=== PATIENT | male | born 1950 | race Caucasian/White ===

== ENCOUNTER → 2018-02-07 | Outpatient (CLI) | payer MEDICARE, OTHER ==
[~2018-02-07] VITALS: Ht 182.9 cm; Wt 124.3 kg
[~2018-02-07] MED LIST: ASPI-983 PO; BNZ40T PO; CATHETER FLUSH 10 ML SYR IV PRN; CLOP75TA28 PO; GLIP10TA13 PO; HYDR12.56 PO; METF10002 PO; OMEG1CAP58 PO; PANT40VI14 IV; PIOG30TA26 PO; PRAV40TA2 PO; RIVA20TA PO; WARF5TAB PO
[2018-02-07 07:31] LABS: BASOPHILS % (AUTO) 1 % (0-10); EOSINOPHILS # (AUTO) 0.2 10^3/uL (0.0-0.3); EOSINOPHILS % (AUTO) 2 % (0-10); HEMATOCRIT 40 % (40-54); HEMOGLOBIN 13.5 G/DL (13.3-17.7); LYMPHOCYTES # (AUTO) 2.3 X 10^3 (1.0-4.0); LYMPHOCYTES % (AUTO) 35 % (12-44); MEAN CORPUSCULAR HEMOGLOBIN 31 PG (25-34); MEAN CORPUSCULAR HGB CONC 34 G/DL (32-36); MEAN CORPUSCULAR VOLUME 92 FL (80-99); MEAN PLATELET VOLUME 10.6 FL (7.4-10.4); MONOCYTES # (AUTO) 0.9 X 10^3 (0.0-1.0); MONOCYTES % (AUTO) 14 % (0-12); NEUTROPHILS # (AUTO) 3.2 X 10^3 (1.8-7.8); NEUTROPHILS % (AUTO) 49 % (42-75); PLATELET COUNT 168 10^3/uL (130-400); RED BLOOD COUNT 4.35 10^6/uL (4.35-5.85); RED CELL DISTRIBUTION WIDTH 13.6 % (10.0-14.5); WHITE BLOOD COUNT 6.6 10^3/uL (4.3-11.0)
[2018-02-07 09:02] VITALS: BP 150/69
--- NOTE | 2018-02-07 14:14 | STRESS TEST ---
DATE OF SERVICE: 02/07/2018 EXERCISE MYOVIEW STRESS TEST REPORT Baseline heart rate is 58. Baseline blood pressure 128/69. Baseline EKG is sinus rhythm with no ischemic changes. In summary, the patient was injected with 10.31 mCi of technetium-99 Myoview and the resting images were obtained. Then, the patient started exercising with a baseline heart rate, blood pressure EKG mentioned above. The patient was able to exercise for a total of 4 minutes on standard Gómez protocol. With peak exercise level, EKG was showing [address] depression in lead II and aVF, [address] depression in lead III, [address] depression upsloping in V3, V4, V5 and V6. Blood pressure was 150/69. During recovery, heart rate and blood pressure returned to baseline. EKG returned to baseline. The resting and stress images were reviewed and compared in the short axis, horizontal long axis, and vertical long axis views. Review of the images showed diaphragmatic attenuation with typical male pattern. There is a mild decrease uptake at the inferior wall with mild reversibility. SSS is 3, SDS 1, TID value 0.93. On the gated images, the left ventricle appeared to be in normal size with normal contractility. Calculated ejection fraction 63%. CONCLUSION: 1. Fair exercise tolerance for the patient age, total of 4 minutes on standard Gómez protocol, total of 5.8 METS achieving 99% of maximum expected heart rate. 2. Mild hypertensive response to exercise, peak blood pressure was 180/81 during stress test. 3. Abnormal EKG response to exercise suggestive of ischemia. 4. SPECT images are nondiagnostic with diaphragmatic attenuation and mild decreased uptake in the inferior wall with mild reversibility. 5. Normal left ventricular size with normal contractility. Calculated ejection fraction 63%. Job ID: [id number] DocumentID: [id number] Dictated Date: 02/07/2018 11:30:16 Welding Equipment Sales Representative Date: 02/07/2018 14:13:17 Dictated By: KANDY YUAN MD
[2018-02-08 14:34] LABS: DRVV C RATIO 1.34 ratio (0.00-1.20)
== END ==
LOC: CARD 06:54
PROVIDERS: ATTEND Internal Medicine Cardiovascular Disease
DX: R07.89 Other chest pain (principal); I10 Essential (primary) hypertension; E11.9 Type 2 diabetes mellitus without complications; E78.5 Hyperlipidemia, unspecified; E78.2 Mixed hyperlipidemia
CPT/HCPCS: 36415; 78452; 81240; 83090; 84443; 85025; 85240; 85307; 85597; 85610; 85613; 85705; 85730; 86146; 86147; 93017

== ENCOUNTER 2018-02-16 06:57 | Day surgery (SDC) | payer MEDICARE, OTHER ==
[2018-02-16] VITALS (13 sets, daily range): BP systolic 116–155; BP diastolic 68–93
[~2018-02-16] VITALS: Ht 182.9 cm; Wt 124.3 kg
[2018-02-16] MEDS ORDERED: LIDOCAINE 1% INJ 20 ML 20 ML VIAL ONE (07:01)
[2018-02-16] MEDS ORDERED: NS IV 1000 ML 3,000 ML ONE (07:01)
[2018-02-16] MEDS: NS IV 1000 ML 1,000 ML IV SCH ×4 (07:37→20:17)
[2018-02-16 07:38] LABS: BILIRUBIN,URINE NEGATIVE (NEGATIVE); CLARITY,URINE CLEAR; COLOR,URINE YELLOW; GLUCOSE, URINE (UA) 3+ (NEGATIVE); KETONES,URINE NEGATIVE (NEGATIVE); LEUKOCYTE ESTERASE ,URINE NEGATIVE (NEGATIVE); NITRITE,URINE NEGATIVE (NEGATIVE); PH,URINE 6 (5-9); PROTEIN,URINE 2+ (NEGATIVE); UROBILINOGEN,URINE NORMAL (NORMAL)
--- NOTE | 2018-02-16 07:46 | Cardiac Procedure Note-CS/ASA ---
Pre-Procedure Note Pre-Op Procedure Note H&P Reviewed The H&P was reviewed, patient examined and no changes noted. Date H&P Reviewed: February 16, 2018 Time H&P Reviewed: 07:46 Conscious Sedation Pre-Proced Time Reviewed: 07:46 ASA Class: 3 Airway Mallampati Classification: (southern ute appropriate class) I. II. III, IV Lungs Heart ASA score ASA 1: a normal healthy patient ASA 2: a patient with a mild systemic disease (mid diabetes, controlled hypertension, obesity x ASA 3: a patient with a severe systemic disease that limits activity (angina , COPD, prior Myocardial infarction) ASA 4: a patient with an incapacitating disease that is a constant threat to life (CHF, renal failure) ASA 5: a moribund patient not expected to survive 24 hrs. (ruptured aneurysm) ASA 6: a declared brain patient whose organs are being harvested. For emergent operations, add the letter E after the classification Grade 3 Sedation Plan: Analgesia, Amnesia, Plan communicated to team members, Discussed options with patient/fam, Discussed risks with patient/fam Note The patient is an appropriate candidate to undergo the planned procedure, sedation, and anesthesia. The patient immediately re-assessed prior to indication. KANDY YUAN MD February 16, 2018 07:46
[2018-02-16] MEDS ORDERED: HEParin 1000 UNIT/ML (10ML VIAL) FOR BOLUS ONE ×2 (07:50→09:41)
[2018-02-16 07:51] LABS: BACTERIA,URINE NEGATIVE /HPF; SQUAMOUS EPITHELIAL CELL,UR RARE /HPF; WBC,URINE 0-2 /HPF
[2018-02-16] MEDS ORDERED: PIOG30TA26 PO (07:54)
[2018-02-16] MEDS ORDERED: BNZ40T PO (07:54)
[2018-02-16] MEDS ORDERED: PRAV40TA2 PO (07:54)
[2018-02-16] MEDS ORDERED: RIVA20TA PO (07:54)
[2018-02-16] MEDS ORDERED: OMEG1CAP58 PO (07:54)
[2018-02-16] MEDS ORDERED: PANT40VI14 IV (07:54)
[2018-02-16] MEDS ORDERED: HYDR12.56 PO (07:54)
[2018-02-16] MEDS ORDERED: METF10002 PO (07:54)
[2018-02-16] MEDS ORDERED: GLIP10TA13 PO (07:54)
[2018-02-16 07:59] LABS: ALBUMIN 4.4 GM/DL (3.2-4.5); BILIRUBIN,TOTAL 0.5 MG/DL (0.1-1.0); CALCIUM 9.7 MG/DL (8.5-10.1); CREATININE SERUM 1.6 MG/DL (0.60-1.30); POTASSIUM 4.1 MMOL/L (3.6-5.0); TOTAL PROTEIN 7.2 GM/DL (6.4-8.2)
--- NOTE | 2018-02-16 08:06 | Diagnostic Imaging Report ---
INDICATION: Pre-heart catheterization. Time of exam: 7:41 AM The heart size is normal. The pulmonary vascularity is unremarkable. The lungs are clear. No infiltrate, effusion or pneumothorax is detected. Impression: No acute cardiopulmonary process is detected. Dictated by: Dictated on workstation # [id number]
[2018-02-16] MEDS ORDERED: MIDAZOLAM 5 MG/5 ML (VERSED) VIAL ONE (09:08)
[2018-02-16] MEDS ORDERED: fentaNYL INJECTION 100 MCG/2 ML AMP ONE (09:08)
[2018-02-16] MEDS ORDERED: NS IV 1000 ML 1,000 ML ONE (09:10)
[2018-02-16] MEDS ORDERED: NITRO DRIP 25000 MCG/D5W 250 ML IV ONE (09:43)
[2018-02-16] MEDS ORDERED: PATIENT MAY USE OWN MEDS, ALL PO SCH (10:00)
[2018-02-16] MEDS ORDERED: ASPIRIN 81 MG CHEW (CHILDREN'S ASA) ONE (10:01)
[2018-02-16] MEDS ORDERED: CLOPIDOGREL 300 MG (PLAVIX) TABLET PO ONE (10:01)
--- NOTE | 2018-02-16 10:08 | Cardiac Cath Report ---
Cardiac Cath Report Physician (s)/Client Renewal Specialist (s) Physician KANDY YUAN MD Pre-Procedure Diagnosis Pre-Procedure Diagnosis: coronary artery disease Post-Procedure Note Procedure Start Date: February 16, 2018 Name of Procedure: Left heart catheterization Chief and to the right coronary artery Findings/Procedure Note PROCEDURE NOTE: After explaining the procedure to the patient, all pros and cons were explained , all questions were answered. The patient signed the consent and then he was placed on the cardiac catheterization laboratory. Groin was prepped SL fashion local anesthesia was used. Sheath placed in the right femoral artery. Terence right and left catheter were used to access the coronary system. Pigtail was used to access the left ventricular cavity. Left ventriculogram was not done, pressure was measured Patient had severe stenosis with ulcerated plaque in the proximal right coronary artery, proceeded with pertains intervention 8000 units of heparin were given then FR guide with side holes was used, BMW wire was advanced to the distal right coronary artery then predilatation with 3.5x15 mm to the proximal right coronary artery then I used bare-metal stent Integrity 4.012 mm expanded to 4.2 mm with excellent results, no residual stenosis, possible to send there is an area of 40 percent stenosis At the end of the procedure the sheath was removed. Closure device was used FINDINGS: Hemodynamics LV 131/9, end-diastolic pressure of 9 Aorta 141/53 mean of 89 ANATOMY: Left Main is free of obstructive disease Left Anterior Descending has mild disease at the midportion, distally at the apex area there is an area of severe stenosis of the artery is less than 1 mm in diameter Left Circumflex is moderate in size with mild disease nonobstructive disease Right Coronory Artery is dominant artery with ulcerated plaque in the proximal portion with severe stenosis successful balloon angioplasty then stent deployment using bare-metal stent integrity 4.012 mm expanded to 4.2 mm with excellent results LV Gram was not done, pressure was measured CONCLUSION: 1. Ulcerated plaque with severe stenosis in the proximal right coronary artery successful balloon dilatation then stent deployment using bare-metal stent integrity 4.012 mm expanded to 4.2 mm with excellent results, proximal to the stent there is an area of mild irregularity with 40 percent stenosis nonobstructive disease 2. Small LAD system with [id number] disease at the midportion, severe disease at the apex area very small artery at that level. 3. Normal left ventricular end-diastolic pressure DISCUSSION AND RECOMMENDATION: We'll continue maximizing medical therapy. Anesthesia Type: Conscious Sedation Estimated blood loss (mL): 15 ml Contrast Amount: 65 ml Total Radiation Dose: 922 mGy Post-Procedure Diagnosis Post-operative diagnosis: Coronary artery disease Hypertension Hyperlipidemia DVT KANDY YUNA MD February 16, 2018 10:08
[2018-02-17] VITALS: BP 132/73
[2018-02-17] MEDS: NS IV 1000 ML 1,000 ML IV SCH ×2 (03:35→06:12)
[2018-02-17 04:00] VITALS: BP 107/63
[2018-02-17 05:01] LABS: HEMOGLOBIN 12.8 G/DL (13.3-17.7); MEAN PLATELET VOLUME 10.9 FL (7.4-10.4); RED BLOOD COUNT 4.15 10^6/uL (4.35-5.85); RED CELL DISTRIBUTION WIDTH 13.5 % (10.0-14.5); WHITE BLOOD COUNT 6.2 10^3/uL (4.3-11.0)
[2018-02-17 05:34] LABS: CALCIUM 8.7 MG/DL (8.5-10.1); CREATININE SERUM 1.35 MG/DL (0.60-1.30); POTASSIUM 4.5 MMOL/L (3.6-5.0)
[2018-02-17] MEDS ORDERED: glipiZIDE 5 MG (GLUCOTROL) TAB PO SCH (06:30)
[2018-02-17] MEDS ORDERED: PIOGLITAZONE 30MG (ACTOS) TAB PO SCH (07:00)
[2018-02-17] MEDS ORDERED: OMEGA 3 (FISH OIL) 1000 MG CAP PO SCH (07:00)
--- NOTE | 2018-02-17 07:26 | Cardiology Progress Note ---
Subjective Date Seen by Provider: February 17, 2018 Time Seen by Provider: 07:25 Subjective/Events-last exam Patient is laying down in bed, feeling well, growing has healing well. Was very concerned about the cost of Xarelto asking to switch to Coumadin Review of Systems General: No Chills, No Night Sweats, No Fatigue, No Malaise, No Appetite, No Other HEENT: No Head Aches, No Visual Changes, No Eye Pain, No Ear Pain, No Dysphasia , No Sinus Congestion, No Post Nasal Drip, No Sore Throat, No Other Pulmonary: No Dyspnea, No Cough, No Pleuritic Chest Pain, No Other Cardiovascular: No: Chest Pain, Palpitations, Orthopnea, Paroxysmal Noc. Dyspnea, Edema, Lt Headedness, Other Objective-Cardiology Exam Last Set of Vital Signs Vital Signs 02/16/18 02/17/18 14:20 04:00 Temp 98.0 Pulse 50 Resp 18 B/P (MAP) 107/63 (78) Pulse Ox 99 O2 Delivery Room Air O2 Flow Rate 2.00 Capillary Refill : Less Than 3 Seconds I&O Intake and Output 02/17/18 00:00 Intake Total 2000 ml Balance 2000 ml IV Total 2000 ml General: Alert, Oriented X3, Cooperative HEENT: Atraumatic, PERRLA Neck: Supple, No JVD, No Thyromegaly Lungs: Clear to Auscultation, Normal Air Movement Heart: Regular Rate, Normal S1, Normal S2, No Murmurs Abdomen: Normal Bowel Sounds, Soft, No Tenderness, No Hepatosplenomegaly, No Masses Extremities: No Clubbing, No Cyanosis, No Edema, Normal Pulses, No Tenderness/ Swelling Skin: No Rashes, No Breakdown, No Significant Lesion Neuro: Normal Gait, Normal Speech, Strength at 5/5 X4 Ext, Normal Tone, Sensation Intact Psych/Mental Status: Mental Status NL, Mood NL Results Lab Laboratory Tests 02/16/18 07:28 02/17/18 04:21 A/P-Cardiology Admission Diagnosis Coronary artery disease Hypertension Hyperlipidemia DVT Assessment/Plan Coronary artery disease, status post stent to the right coronary artery with excellent result Hypertension Hyperlipidemia DVT maintained on Xarelto, patient is asking to switch to Coumadin. KANDY YUAN MD February 17, 2018 07:26
[2018-02-17] MEDS ORDERED: WARF5TAB PO (07:28)
[2018-02-17] MEDS ORDERED: CLOP75TA28 PO (07:28)
[2018-02-17] MEDS ORDERED: ASPI-983 PO (07:28)
--- NOTE | 2018-02-17 07:30 | Discharge Inst-Post CATH ---
Discharge Inst-CATH Post Cardiac Cath D/C Inst Follow Up/Plan Hold metformin for 48 hours Start Coumadin 5 mg daily today in addition to aspirin and Plavix And continue on Xarelto until February 20 PT/INR starting on February [address] Lin's office in 2-4 weeks CARDIAC CATH DISCHARGE INSTRUCTIONS *Hold Metformin for 48 hours post heart cath. ACTIVITY * Go Home directly and rest. * Limit activity of the leg (or wrist if it was used) for 7 days including aerobics, swimming, jogging, bicycling, etc. * Restrict stair-climbing for 7 days if possible, if not, climb up with your non -cath leg, then bring together on the same step. * Avoid lifting, pushing, pulling or excessive movement of the affected extremity for 7 days. * Customary sexual activity may be resumed after 2 days-use caution not to use a position that strains or causes pain to the affected extremity. * No driving for 24 hours. * NO SMOKING. * Avoid straining for bowel movements for 7 days. * Gentle walking on level ground is allowed. * Returning to work will depend on the type of procedure and the results. Your doctor will discuss this with you. CALL YOUR DOCTOR FOR ANY OF THE FOLLOWING: *If bleeding from the puncture site occurs- Apply gentle pressure to site with clean cloth and call your doctor or EMS. * If a knot or lump forms under the skin, increases in size, or causes pain. * If bruising appears to be worsening or moving further down your leg instead of disappearing. * Temperature above 101 F. CARE OF YOUR GROIN INCISION; * Bruising or purple discoloration of the skin near the puncture site is common. * You may shower only, no bathtub bathing for 5 days. Be careful to avoid slipping as your leg may feel stiff. * If a closure device was used on your femoral artery, please see the attached guide regarding care of the device and your leg. * REMOVE the dressing from your groin the next day after your procedure in the shower. CARE OF YOUR WRIST INCISION; * Bruising or purple discoloration of the skin near the puncture site is common. * You may shower. * DO NOT submerge wrist. * Remove dressing in 24 hours. KANDY LIN MD February 17, 2018 07:30
[2018-02-17 07:38] VITALS: BP 114/72
[2018-02-17] MEDS ORDERED: ASPIRIN E.C. 81 MG (ECOTRIN) TAB PO SCH (09:00)
[2018-02-17] MEDS ORDERED: NON-FORMULARY MEDICATION 1 EA EA (Hydrochlorothiazide 12.5 MG) PO SCH (09:00)
[2018-02-17] MEDS ORDERED: HYDROCHLOROTHIAZIDE 12.5 MG (HCTZ) CAP PO SCH (09:00)
[2018-02-17] MEDS ORDERED: CLOPIDOGREL 75 MG (PLAVIX) TABLET PO SCH (09:00)
[2018-02-17] MEDS ORDERED: lisINopril 40 MG (PRINIVIL) TABLET PO SCH (09:00)
[2018-02-17] MEDS ORDERED: NON-FORMULARY MEDICATION 1 EA EA (Pravastatin Sodium 40 MG) PO SCH (09:00)
[2018-02-17] MEDS ORDERED: NON-FORMULARY MEDICATION 1 EA EA (Pioglitazone HCl 30 MG) PO SCH (09:00)
[2018-02-17] MEDS ORDERED: NON-FORMULARY MEDICATION 1 EA EA (Glipizide 10 MG) PO SCH (09:00)
[2018-02-17] MEDS ORDERED: PANTOPRAZOLE 40 MG/10 ML (PROTONIX) VIAL IV SCH (09:00)
[2018-02-17] MEDS ORDERED: NON-FORMULARY MEDICATION 1 EA EA (Benazepril HCl 40 MG) PO SCH (09:00)
[2018-02-17] MEDS ORDERED: SIMvastatin 20 MG (ZOCOR) TAB PO SCH (21:00)
== END 2018-02-17 09:45 | disposition home or self-care (01) ==
LOC: CATH 06:57 → SURG 10:19 → ICU 16:00 → CATH 02-17 09:45 → ICU 02-17 10:08
PROVIDERS: ATTEND Internal Medicine Cardiovascular Disease
DX: I25.10 Atherosclerotic heart disease of native coronary artery without angina pectoris (principal); I10 Essential (primary) hypertension; E78.5 Hyperlipidemia, unspecified; Z86.73 Personal history of transient ischemic attack (TIA), and cerebral infarction without residual deficits; Z79.01 Long term (current) use of anticoagulants
CPT/HCPCS: 36415; 71045; 80048; 80053; 80061; 81000; 85027; 87081; 93005; 93306; 93458

== ENCOUNTER → 2018-10-03 | Outpatient (RCR) | payer MEDICARE, OTHER ==
[2018-07-05 15:29] LABS: INR 1.8 (0.8-1.4); PROTHROMBIN TIME PATIENT 20.9 SEC (12.2-14.7)
[2018-07-25 15:55] LABS: INR 2.2 (0.8-1.4); PROTHROMBIN TIME PATIENT 24.8 SEC (12.2-14.7)
[~2018-10-03] MED LIST changes: +BENA40TA5 PO; -BNZ40T PO; -CATHETER FLUSH 10 ML SYR IV PRN; +METF-399 PO; -METF10002 PO; -PIOG30TA26 PO; +PIOG30TA71 PO
[2018-10-03 10:53] LABS: INR 2.3 (0.8-1.4); PROTHROMBIN TIME PATIENT 25.5 SEC (12.2-14.7)
== END | disposition home or self-care (01) ==
LOC: LAB 07-05 15:02
PROVIDERS: ATTEND Internal Medicine Cardiovascular Disease
DX: E11.9 Type 2 diabetes mellitus without complications (principal); I82.409 Acute embolism and thrombosis of unspecified deep veins of unspecified lower extremity; I10 Essential (primary) hypertension; E78.2 Mixed hyperlipidemia; R07.89 Other chest pain
CPT/HCPCS: 36415; 85610

== ENCOUNTER 2018-12-19 12:14 | Outpatient (RCR) | payer MEDICARE, OTHER ==
[2018-11-14 12:44] LABS: INR 2.2 (0.8-1.4); PROTHROMBIN TIME PATIENT 24.9 SEC (12.2-14.7)
[~2018-12-19 12:14] MED LIST changes: -RIVA20TA PO; +RIVA20TA2 PO
[2018-12-19 12:36] LABS: INR 2.3 (0.8-1.4); PROTHROMBIN TIME PATIENT 25.9 SEC (12.2-14.7)
== END 2019-02-12 | disposition home or self-care (01) ==
LOC: LAB 12:14
PROVIDERS: ATTEND Internal Medicine Cardiovascular Disease
DX: Z51.81 Encounter for therapeutic drug level monitoring (principal); Z79.01 Long term (current) use of anticoagulants; Z86.718 Personal history of other venous thrombosis and embolism
CPT/HCPCS: 36415; 85610

== ENCOUNTER 2019-05-22 12:55 | Outpatient (RCR) | payer MEDICARE, OTHER ==
[2019-03-20 12:45] LABS: INR 1.8 (0.8-1.4); PROTHROMBIN TIME PATIENT 21.5 SEC (12.2-14.7)
[2019-04-10 10:25] LABS: INR 2.2 (0.8-1.4); PROTHROMBIN TIME PATIENT 25.5 SEC (12.2-14.7)
[2019-05-22 13:13] LABS: INR 2.1 (0.8-1.4); PROTHROMBIN TIME PATIENT 24.6 SEC (12.2-14.7)
== END 2019-06-18 | disposition home or self-care (01) ==
LOC: LAB 12:55
PROVIDERS: ATTEND Internal Medicine Cardiovascular Disease
DX: Z51.81 Encounter for therapeutic drug level monitoring (principal); Z79.01 Long term (current) use of anticoagulants; Z86.718 Personal history of other venous thrombosis and embolism
CPT/HCPCS: 36415; 85610

== ENCOUNTER 2019-08-14 10:09 | Outpatient (RCR) | payer MEDICARE, OTHER ==
[2019-08-14 10:34] LABS: INR 1.8 (0.8-1.4); PROTHROMBIN TIME PATIENT 21.9 SEC (12.2-14.7)
[2019-08-28 13:43] LABS: INR 2.2 (0.8-1.4); PROTHROMBIN TIME PATIENT 25.5 SEC (12.2-14.7)
== END 2019-11-12 | disposition home or self-care (01) ==
LOC: LAB 10:09
PROVIDERS: ATTEND Internal Medicine Cardiovascular Disease
DX: Z51.81 Encounter for therapeutic drug level monitoring (principal); Z86.718 Personal history of other venous thrombosis and embolism; Z79.899 Other long term (current) drug therapy
CPT/HCPCS: 36415; 85610

== ENCOUNTER → 2019-12-11 | Outpatient (CLI) | payer MEDICARE, OTHER ==
[2019-12-11 17:19] LABS: INR 1.8 (0.8-1.4); PROTHROMBIN TIME PATIENT 21.8 SEC (12.2-14.7)
== END ==
LOC: LAB 16:45
PROVIDERS: ATTEND Internal Medicine Cardiovascular Disease
DX: Z51.81 Encounter for therapeutic drug level monitoring (principal); Z86.718 Personal history of other venous thrombosis and embolism; Z79.01 Long term (current) use of anticoagulants
CPT/HCPCS: 36415; 85610

== ENCOUNTER → 2021-11-24 | Outpatient (CLI) | payer MEDICARE, OTHER ==
[~2021-11-24] MED LIST changes: +ASPI-1238 PO; -ASPI-983 PO; -BENA40TA5 PO; +BENA40TA84 PO; -WARF5TAB PO; +WARF5TAB2 PO
== END ==
LOC: CARD 12:12
PROVIDERS: ATTEND Physician Assistant
DX: I10 Essential (primary) hypertension (principal)
CPT/HCPCS: 93306

== ENCOUNTER → 2021-12-22 | Outpatient (CLI) | payer MEDICARE, OTHER ==
[~2021-12-22] MED LIST changes: +CATHETER FLUSH 10 ML SYR IVP PRN
[2021-12-22 09:39] VITALS: BP 154/70
--- NOTE | 2021-12-22 11:27 | Cardiology Stress Test Report ---
Stress Test Report Date of Procedure/Referring: Date of Procedure: Dec 22, 2021 Cat Suh Admitting Physician Amanda Mccall MD Indications: HTN Baseline Heart Rate: 70 Baseline Blood Pressure: Blood Pressure Systolic: 154 Blood Pressure Diastolic: 70 Vital Signs Date Time Temp Pulse Resp B/P (MAP) Pulse Ox O2 Delivery O2 Flow Rate FiO2 12/22/21 09:39 73 20 154/70 (98) 95 Room Air Baseline Vital Signs Vital Signs Date Time Temp Pulse Resp B/P (MAP) Pulse Ox O2 Delivery O2 Flow Rate FiO2 12/22/21 09:39 73 20 154/70 (98) 95 Room Air Baseline EKG: Baseline EKG: NSR Summary: After explaining the procedure and details to the patient, he signed the consent and was brought to the stress nuclear laboratory. Patient exercised on standard Gómez protocol, EKG, heart rate and blood pressure were monitored continuously, resting and stress doses of radio tracer were injected, imaging was acquired and reviewed in the short axis, horizontal long axis and vertical long axis views Patient was able to exercise for a total of 4 minutes on Gómez protocol, METs 5.8 Maximum heart rate 139 Maximum blood pressure 242/73 Stress EKG, Minimal nondiagnostic changes Recovery EKG, Return to baseline TID: 1.1 SSS: 12 SDS: 7 EF: 49 Conclusion: 1. Fair exercise tolerance for a total of 4 minutes on standard Gómez protocol, 5.8 METS achieving 94% of maximal expected heart rate. 2. Appropriate heart rate response to exercise with severe hypertensive response to exercise with peak blood pressure 242/73 return to baseline during recovery 3. Baseline right bundle branch block. Minimal nondiagnostic EKG changes with exercise return to baseline during recovery 4. Diaphragmatic attenuation with fixed defect involving the basal to mid inferior wall, reversible ischemia involving the mid to apical inferior wall true apex and anterior apical segment 5. Normal left ventricular size, ejection fraction 49% KANDY YUAN MD Dec 22, 2021 11:27
== END ==
LOC: CARD 08:30
PROVIDERS: ATTEND Physician Assistant
DX: I10 Essential (primary) hypertension (principal)
CPT/HCPCS: 78452; 93017; A9502

== ENCOUNTER 2022-01-19 06:48 | Day surgery (SDC) | payer MEDICARE, OTHER ==
[~2022-01-19] VITALS: Ht 182.9 cm; Wt 128.8 kg
[2022-01-19] VITALS (19 sets, daily range): BP systolic 112–161; BP diastolic 62–90
[~2022-01-19 06:48] MED LIST changes: -CATHETER FLUSH 10 ML SYR IVP PRN
[2022-01-19] MEDS ORDERED: NS IV 1000 ML 1,000 ML ONE (06:58)
[2022-01-19] MEDS ORDERED: LIDOCAINE 1% INJ 20 ML VIAL ONE (06:58)
[2022-01-19] MEDS ORDERED: HEParin (CATH LAB) 2,000 ML IV ONE (06:58)
[2022-01-19] MEDS ORDERED: NS IV 1000 ML 1,000 ML IV SCH (07:00)
--- NOTE | 2022-01-19 07:23 | Diagnostic Imaging Report ---
INDICATION: ABNORMAL STRESS TEST, CAD COMPARISON: 02/16/2018 FINDINGS: Single frontal view of the chest demonstrates normal heart size and pulmonary vascularity. The lungs are well aerated and clear. No large pleural effusion or pneumothorax is seen. The visualized osseous structures show no acute abnormalities. IMPRESSION: 1. No acute cardiopulmonary process. Dictated by: Dictated on workstation # [id number]
[2022-01-19 07:31] LABS: HEMATOCRIT 42 % (40-54); MEAN CORPUSCULAR HEMOGLOBIN 32 pg (25-34); MEAN CORPUSCULAR HGB CONC 34 g/dL (32-36); MEAN CORPUSCULAR VOLUME 94 fL (80-99); MEAN PLATELET VOLUME 9.9 fL (9.0-12.2); PLATELET COUNT 192 10^3/uL (130-400); WHITE BLOOD COUNT 6.4 10^3/uL (4.3-11.0)
[2022-01-19] MEDS ORDERED: VERAPAMIL 5 MG/2 ML (CALAN) VIAL IV ONE (07:40)
[2022-01-19] MEDS ORDERED: fentaNYL INJ 100 MCG/2 ML AMP ONE (07:40)
[2022-01-19] MEDS ORDERED: HEParin 1000 UNIT/ML (10ML VIAL) FOR BOLUS ONE (07:41)
[2022-01-19] MEDS ORDERED: ASPI-1238 PO (07:41)
[2022-01-19] MEDS ORDERED: GLIP5TAB13 PO ×2 (07:41)
[2022-01-19] MEDS ORDERED: MIDAZOLAM 5 MG/5 ML (VERSED) VIAL ONE (07:41)
[2022-01-19] MEDS ORDERED: NITRO DRIP 25000 MCG/D5W 250 ML IV ONE (07:41)
[2022-01-19] MEDS ORDERED: WARF-48 PO ×2 (07:41)
[2022-01-19] MEDS ORDERED: ATOR20TA66 PO (07:41)
[2022-01-19] MEDS ORDERED: METF-399 PO (07:41)
[2022-01-19 07:51] LABS: ALBUMIN 4.2 GM/DL (3.2-4.5); INR 1.3 (0.8-1.4); PROTHROMBIN TIME PATIENT 16.1 SEC (12.2-14.7)
[2022-01-19 07:53] LABS: CALCIUM 9.5 MG/DL (8.5-10.1)
[2022-01-19 07:54] LABS: TOTAL PROTEIN 6.8 GM/DL (6.4-8.2)
[2022-01-19 07:56] LABS: BILIRUBIN,TOTAL 0.8 MG/DL (0.1-1.0)
[2022-01-19 07:58] LABS: CREATININE SERUM 1.49 MG/DL (0.60-1.30)
--- NOTE | 2022-01-19 09:19 | Conscious Sedation/ASA ---
Conscious Sedation Pre-Proced Time 09:19 ASA Score 3 For ASA 3 and 4: Consider anesthesia and medical clearance. Also, for patients with a history of failed moderate sedation consider anesthesia. Airway Lungs Heart ASA score ASA 1: a normal healthy patient ASA 2: a patient with a mild systemic disease (mid diabetes, controlled hypertension, obesity x ASA 3: a patient with a severe systemic disease that limits activity (angina, COPD, prior Myocardial infarction) ASA 4: a patient with an incapacitating disease that is a constant threat to life (CHF, renal failure) ASA 5: a moribund patient not expected to survive 24 hrs. (ruptured aneurysm) ASA 6: a declared brain- patient whose organs are being harvested. For emergent operations, add the letter E after the classification Mallampati Classification Grade 3 Sedation Plan Analgesia, Amnesia, Plan communicated to team members, Discussed options with patient/fam, Discussed risks with patient/fam The patient is an appropriate candidate to undergo the planned procedure, sedation, and anesthesia. The patient immediately re-assessed prior to indication. KANDY YUAN MD Jan 19, 2022 09:19
[2022-01-19] MEDS ORDERED: ASPIRIN 325 MG (5 GR) TABLET ONE (09:50)
[2022-01-19] MEDS ORDERED: CLOPIDOGREL 300 MG (PLAVIX) TABLET PO ONE (09:51)
[2022-01-19] MEDS ORDERED: PATIENT MAY USE OWN MEDS, ALL PO SCH (10:00)
--- NOTE | 2022-01-19 10:55 | Cardiac Cath Report ---
Cardiac Cath Report Physician (s)/Braiding Machine Tender (s) Physician KANDY YUAN MD Pre-Procedure Diagnosis Pre-Procedure Diagnosis: coronary artery disease Post-Procedure Note Procedure Start Date: Jan 19, 2022 Name of Procedure: Left heart catheterization Stenting to the LAD Findings/Procedure Note PROCEDURE NOTE: 72 years old gentleman with a history of coronary artery disease stent of the right coronary artery had an abnormal stress test, has been having increasing chest pain and shortness of breath, scheduled for cardiac catheterization possible PTCA. After explaining the procedure to the patient, all pros and cons were explained, all questions were answered. The patient signed the consent and then he was placed on the cardiac catheterization laboratory. Groin was prepped SL fashion local anesthesia was used. Sheath placed in the right radial artery, Turner catheter was advanced to the left ventricular cavity, pressure was measured, pullback LV to aorta was done, engaged the right and left coronary system, angiogram was done. Patient has severe stenosis in the proximal LAD, EBU 4.0 guide was used, total of 6000 units of heparin was given, BMW wire was advanced and parked in the distal LAD then primary stenting using kristina point 2.5 x 15 expanded to 2.75 with excellent results. Angiogram showed excellent results. The stent was placed just beyond the ostium of the LAD. At the end of the procedure the sheath was removed. Vascular band was used FINDINGS: Hemodynamics LV 123/11, end-diastolic pressure of 11 Aorta 110/68 mean of 84 ANATOMY: Left Main is free of obstructive disease Left Anterior Descending has severe proximal LAD stenosis successful primary stenting using kristina point stent 2.5 x 15 mm expanded to 2.75 mm with excellent results, the distal LAD has severe stenosis at the apex level, it is a very small artery not amendable to intervention Left Circumflex is moderate in size with mild disease nonobstructive disease Right Coronary Artery is dominant artery with proximal patent stent, mild dise ase in the right PDA nonobstructive disease LV Gram was not done, pressure was measured CONCLUSION: 1. Severe proximal LAD stenosis with successful deployment of kristina point stent 2.5 x 15 mm expanded to 2.75 mm with excellent results. The distal LAD has severe stenosis at the apex level, very small artery not amendable to intervention 2. Patent stent in the proximal right coronary artery with mild disease at the right PDA nonobstructive disease 3. Mild disease in the circumflex artery 4. Normal left ventricular end-diastolic pressure DISCUSSION AND RECOMMENDATION: Patient was loaded on aspirin and Plavix and will continue on Coumadin. In 3 months we will stop aspirin and continue on Plavix and Coumadin Anesthesia Type: Conscious Sedation Estimated blood loss (mL): 20 ml Contrast Amount: 100 ml Total Radiation Dose: 1293 mGy Post-Procedure Diagnosis Post-operative diagnosis: Chest pain Coronary artery disease Hypertension Hyperlipidemia KANDY YUAN MD Jan 19, 2022 10:55
[2022-01-19] MEDS: NS IV 1000 ML 1,000 ML IV SCH ×2 (11:27→21:09)
[2022-01-19] MEDS ORDERED: glipiZIDE 5 MG (GLUCOTROL) TAB PO SCH (17:00)
[2022-01-19] MEDS ORDERED: PIOGLITAZONE 30MG (ACTOS) TAB PO SCH (18:00)
[2022-01-19] MEDS ORDERED: lisINopril 40 MG (PRINIVIL) TABLET PO SCH (18:00)
[2022-01-19] MEDS ORDERED: warFARin 5 MG (COUMADIN) TAB PO SCH (18:00)
[2022-01-20] VITALS: BP 144/70
[2022-01-20 05:02] VITALS: BP 136/89
[2022-01-20 05:22] LABS: HEMATOCRIT 38 % (40-54); HEMOGLOBIN 12.8 g/dL (13.3-17.7); MEAN CORPUSCULAR HEMOGLOBIN 31 pg (25-34); MEAN CORPUSCULAR HGB CONC 34 g/dL (32-36); MEAN CORPUSCULAR VOLUME 94 fL (80-99); MEAN PLATELET VOLUME 9.9 fL (9.0-12.2); PLATELET COUNT 154 10^3/uL (130-400); WHITE BLOOD COUNT 6.6 10^3/uL (4.3-11.0)
[2022-01-20 05:30] LABS: POTASSIUM 4.3 MMOL/L (3.6-5.0)
[2022-01-20 05:32] LABS: CALCIUM 8.8 MG/DL (8.5-10.1)
[2022-01-20 05:36] LABS: CREATININE SERUM 1.24 MG/DL (0.60-1.30)
[2022-01-20] MEDS ORDERED: PANT40SU PO (06:50)
[2022-01-20] MEDS ORDERED: CLOP75TA28 PO (06:50)
[2022-01-20] MEDS ORDERED: METF-399 PO (06:50)
--- NOTE | 2022-01-20 06:51 | Discharge Inst-Post CATH ---
Discharge Inst-CATH/EP Problems Reviewed?: Yes Post Cardiac Cath/EP D/C Inst Follow Up/Plan Hold Metformin for [address] Lin in 2-4 weeks <b>CARDIAC CATH/EP PROCEDURE DISCHARGE INSTRUCTIONS</b> ACTIVITY * Go Home directly and rest. * Limit activity of the leg (or wrist if it was used) for 7 days including aerobics, swimming, jogging, bicycling, etc. * Restrict stair-climbing for 7 days if possible, if not, climb up with your non-cath leg, then bring together on the same step. * Avoid lifting, pushing, pulling or excessive movement of the affected extremity for 7 days. * Customary sexual activity may be resumed after 2 days-use caution not to use a position that strains or causes pain to the affected extremity. * No driving for 24 hours. * NO SMOKING. * Avoid straining for bowel movements for 7 days. * Gentle walking on level ground is allowed. * Returning to work will depend on the type of procedure and the results. Your doctor will discuss this with you. CALL YOUR DOCTOR FOR ANY OF THE FOLLOWING: *If bleeding from the puncture site occurs- Apply gentle pressure to site with clean cloth and call your doctor or EMS. * If a knot or lump forms under the skin, increases in size, or causes pain. * If bruising appears to be worsening or moving further down your leg instead of disappearing. * Temperature above 101 F. CARE OF YOUR GROIN INCISION; * Bruising or purple discoloration of the skin near the puncture site is common. * You may shower only, no bathtub bathing for 5 days. Be careful to avoid slipping as your leg may feel stiff. * If a closure device was used on your femoral artery, please see the attached guide regarding care of the device and your leg. * Leave dressing on FOR 24 hours. CARE OF YOUR WRIST INCISION; * Bruising or purple discoloration of the skin near the puncture site is common. * You may shower. * DO NOT submerge wrist. * Leave dressing on FOR 24 hours. KANDY LIN MD Jan 20, 2022 06:51
[2022-01-20] MEDS: NS IV 1000 ML 1,000 ML IV SCH (06:57)
[2022-01-20] MEDS ORDERED: glipiZIDE 5 MG (GLUCOTROL) TAB PO SCH (07:00)
[2022-01-20 07:57] VITALS: BP 140/79
[2022-01-20] MEDS ORDERED: ASPIRIN E.C. 81 MG (ECOTRIN) TAB PO SCH (09:00)
[2022-01-20] MEDS ORDERED: OMEGA 3 (FISH OIL) 1000 MG CAP PO SCH (09:00)
[2022-01-20] MEDS ORDERED: CLOPIDOGREL 75 MG (PLAVIX) TABLET PO SCH (09:00)
[2022-01-20] MEDS ORDERED: NON-FORMULARY MEDICATION 1 EA EA (Benazepril HCl 40 MG) PO SCH (09:00)
[2022-01-20] MEDS ORDERED: NON-FORMULARY MEDICATION 1 EA EA (Hydrochlorothiazide 12.5 MG) PO SCH (09:00)
[2022-01-20 10:53] VITALS: BP 140/79
--- NOTE | 2022-01-20 16:08 | Cardiology Progress Note ---
Subjective Date Seen by Provider: Jan 20, 2022 Time Seen by Provider: 08:00 Subjective/Events-last exam Patient was seen at bedside, feeling better, no chest pain was reported Review of Systems General: No Chills, No Night Sweats, No Fatigue, No Malaise, No Appetite, No Other HEENT: No Head Aches, No Visual Changes, No Eye Pain, No Ear Pain, No Dysphasia, No Sinus Congestion, No Post Nasal Drip, No Sore Throat, No Other Pulmonary: No Dyspnea, No Cough, No Pleuritic Chest Pain, No Other Cardiovascular: No: Chest Pain, Palpitations, Orthopnea, Paroxysmal Noc. Dyspnea, Edema, Lt Headedness, Other Objective-Cardiology Exam Last Set of Vital Signs Vital Signs 01/20/22 10:53 Temp 36.6 Pulse 85 Resp 16 B/P (MAP) 140/79 Pulse Ox 98 O2 Delivery Room Air I&O Intake and Output 01/20/22 00:00 Intake Total 1080 ml Balance 1080 ml Intake Oral 1080 ml # Voids 5 Daily Weight Change No General: Alert, Oriented X3, Cooperative HEENT: Atraumatic, PERRLA Neck: Supple, No JVD, No Thyromegaly Lungs: Clear to Auscultation, Normal Air Movement Heart: Regular Rate, Normal S1, Normal S2, No Murmurs Abdomen: Normal Bowel Sounds, Soft, No Tenderness, No Hepatosplenomegaly, No Masses Extremities: No Clubbing, No Cyanosis, No Edema, Normal Pulses, No Tenderness/Swelling Skin: No Rashes, No Breakdown, No Significant Lesion Neuro: Normal Gait, Normal Speech, Strength at 5/5 X4 Ext, Normal Tone, Sensation Intact Psych/Mental Status: Mental Status NL, Mood NL Results Lab Laboratory Tests 01/20/22 05:15 A/P-Cardiology Admission Diagnosis Coronary artery disease Hypertension Hyperlipidemia Assessment/Plan Coronary artery disease, status post stenting to the LAD with excellent results Hypertension, monitor blood pressure Hyperlipidemia, continue on current medication monitor lipids Obesity, discussed weight loss Discussed with the patient discharge instruction, educated on condition. We will continue on aspirin, Plavix and Coumadin as an outpatient for the next 3 months then we will stop Plavix. KANDY YUAN MD Jan 20, 2022 16:08
[2022-01-20] MEDS ORDERED: warFARin 5 MG (COUMADIN) TAB PO SCH (18:00)
== END 2022-01-20 10:51 | disposition home or self-care (01) ==
LOC: CATH 06:48 → CSD 10:07 → CATH 01-20 10:51
PROVIDERS: ATTEND Internal Medicine Cardiovascular Disease
DX: I25.10 Atherosclerotic heart disease of native coronary artery without angina pectoris (principal); I10 Essential (primary) hypertension; R42 Dizziness and giddiness; I65.23 Occlusion and stenosis of bilateral carotid arteries; E78.2 Mixed hyperlipidemia; E11.9 Type 2 diabetes mellitus without complications; J44.9 Chronic obstructive pulmonary disease, unspecified; E66.9 Obesity, unspecified; Z68.38 Body mass index [BMI] 38.0-38.9, adult; Z47.33 Aftercare following explantation of knee joint prosthesis; Z79.01 Long term (current) use of anticoagulants; Z99.89 Dependence on other enabling machines and devices; Z95.5 Presence of coronary angioplasty implant and graft; Z79.84 Long term (current) use of oral hypoglycemic drugs; Z79.899 Other long term (current) drug therapy
CPT/HCPCS: 71045; 80048; 80053; 85027 ×2; 85347; 85610; 85730; 87081; 93005 ×2; 93458; C1769; C1874; C1887; C1894; C9600; 36415